=== PATIENT | male | born 1955 | race Caucasian/White ===

== ENCOUNTER → 2017-08-24 08:54 | Outpatient (CLI) | payer OTHER, MEDICAID, SELFPAY ==
--- NOTE | 2017-08-28 15:58 | PM.PFT.1 ---
Pulmonary Function Test Referral & Results Date Patient Seen: 08/24/17 Requesting provider: Fernanda Perry Results: The spirometry demonstrates an FVC of 3.62 L which is 70% of predicted. The FEV1 was measured at 2.08 L which is 53% of predicted. The FEV1/FVC ratio was 57 which is 75% of predicted. Following the administration of bronchodilator there was a 22% improvement in FEV1 and a 60% improvement in FEF 25-75%. Lung volumes show an SVC of 4.36 L which is 86% of predicted. The diffusing capacity was measured at 32.16 which is 91% of predicted. The maximum voluntary ventilation was normal. Interpretation: This study demonstrates moderate obstructive lung disease with evidence of significant benefit following bronchodilator administration
== END ==
PROVIDERS: Family Provider Family Medicine; PCP Family Medicine; Visit Provider Internal Medicine
DX: R05 Cough (principal)
CPT/HCPCS: 94010; 94060; 94726; 94729

== ENCOUNTER → 2017-12-22 08:07 | Outpatient (CLI) | payer OTHER, MEDICAID, SELFPAY ==
[2017-12-22 09:40] LABS: Cholesterol 127 mg/dL (140-199); HDL Cholesterol 36 mg/dL (40-60); LDL Cholesterol Calculated 73 mg/dL (<100); Triglycerides 89 mg/dL (35-150)
[2017-12-22 10:10] LABS: Prostate Specific Antigen 0.592 ng/mL (0.10-4.00)
== END ==
PROVIDERS: PCP Family Medicine; Visit Provider Family Medicine
DX: E78.00 Pure hypercholesterolemia, unspecified (principal); E78.2 Mixed hyperlipidemia; I10 Essential (primary) hypertension; Z12.5 Encounter for screening for malignant neoplasm of prostate
CPT/HCPCS: 36415; 80061; 84153

== ENCOUNTER → 2018-04-25 11:38 | Outpatient (CLI) | payer OTHER, MEDICAID, SELFPAY | PROVIDERS: Family Provider Family Medicine; PCP Family Medicine; Visit Provider Physician Assistant | DX: J02.9 Acute pharyngitis, unspecified (principal) | CPT/HCPCS: 87070 ==

== ENCOUNTER → 2018-05-08 10:19 | Outpatient (CLI) | payer OTHER, MEDICAID, SELFPAY ==
--- NOTE | 2018-05-08 10:22 | DI.RAD.S_ITS ---
PROCEDURE: XR KNEE RT 3V INDICATIONS: pain TECHNIQUE: 3 views of the knee were acquired. COMPARISON: None. FINDINGS: Bones: No fractures or dislocations. No suspicious bony lesions. There is moderately severe medial compartment degenerative knee joint osteophytic change Soft tissues: No joint effusion. No suspicious soft tissue calcifications. IMPRESSION: Moderately severe medial compartment degenerative knee joint osteoarthritis. Dictated by: Enrico Alatorre M.D. on 05/08/2018 at 12:58 Approved by: Enrico Alatorre M.D. on 05/08/2018 at 12:58
--- NOTE | 2018-05-08 10:22 | DI.RAD.S_ITS ---
PROCEDURE: XR KNEE LT 3V INDICATIONS: pain TECHNIQUE: 3 views of the knee were acquired. COMPARISON: None. FINDINGS: Bones: No fractures or dislocations. No suspicious bony lesions. Mild/moderate arthritic joint space narrowing of the medial compartment. Soft tissues: No joint effusion. No suspicious soft tissue calcifications. IMPRESSION: Mild to moderate osteoarthritic change medial compartment of the left knee. Dictated by: Enrico Alatorre M.D. on 05/08/2018 at 12:57 Approved by: Enrico Alatorre M.D. on 05/08/2018 at 12:58
[2018-05-08 11:29] LABS: Add Manual Diff / Slide Review NO; Basophils Absolute Auto 100 /uL (0-100); Basophils Percent Auto 1.2 % (0-2); Eosinophils Absolute Auto 200 /uL (0-450); Eosinophils Percent Auto 3.8 % (2-4); Hematocrit 41.1 % (41-53); Hemoglobin 13.9 g/dL (13.5-17.5); Lymphocytes Absolute Auto 1400 /uL (1100-4500); Lymphocytes Percent Auto 23.6 % (25-40); Mean Corpuscular HGB Conc 33.8 % (30-36); Mean Corpuscular Hemoglobin 30.4 PG (26-34); Mean Corpuscular Volume 90.1 fL (80-100); Monocytes Absolute Auto 700 /uL (0-900); Monocytes Percent Auto 11.8 % (3-14); Neutrophils Absolute Auto 3600 /uL (1500-7000); Neutrophils Percent Auto 59.6 % (50-75); Platelet Count 311 X10^3/uL (150-400); Red Blood Cell Count 4.56 X10^6/uL (4.5-5.9); Red Cell Distribution Width 13.2 % (11.6-14.8); White Blood Cell Count 6.1 X10^3/uL (4.5-11.0)
[2018-05-08 11:39] LABS: Alanine Aminotransferase 30 IU/L (21-72); Albumin 4.4 g/dL (3.5-5.0); Albumin Globulin Ratio 1.2 (1.0-2.8); Alkaline Phosphatase 65 U/L (38-126); Aspartate Aminotransferase 27 IU/L (17-59); BUN Creatinine Ratio 15.6 (6-22); Bilirubin Total 0.6 mg/dL (0.2-1.3); Blood Urea Nitrogen 14 mg/dL (9-20); Calcium 8.9 mg/dL (8.4-10.2); Carbon Dioxide 24 mmol/L (22-32); Chloride 106 mmol/L (98-107); Cholesterol 145 mg/dL (140-199); Estimated Glomerular Filt Rate > 60.0 mL/min (>60); Globulin 3.6 g/dL (1.7-4.1); Glucose 88 mg/dL (80-110); HDL Cholesterol 34 mg/dL (40-60); HEMOLYSIS < 15 (0-50); LDL Cholesterol Calculated 93 mg/dL (<100); Potassium 4.3 mmol/L (3.4-5.1); Sodium 139 mmol/L (137-145); Triglycerides 88 mg/dL (35-150)
[2018-05-08 12:00] LABS: Thyroid Stimulating Hormone 2.36 uIU/mL (0.47-4.68)
== END ==
PROVIDERS: Family Provider Family Medicine; PCP Family Medicine; Visit Provider Family Medicine
DX: M47.812 Spondylosis without myelopathy or radiculopathy, cervical region (principal); I10 Essential (primary) hypertension
CPT/HCPCS: 36415; 73562; 80053; 80061; 84443; 85025

== ENCOUNTER → 2018-06-19 10:12 | Outpatient (CLI) | payer OTHER, MEDICAID, SELFPAY ==
--- NOTE | 2018-06-19 10:14 | DI.RAD.S_ITS ---
PROCEDURE: XR CERVICAL SPINE 2V OR 3V INDICATIONS: djd TECHNIQUE: 3 view(s) of the cervical spine were acquired. COMPARISON: None. FINDINGS: Bones: No fracture or focal osseous destruction. Straightening of the normal cervical lordosis. Diffuse endplate spurring and sclerosis. Moderate to severe disc space narrowing from C4-C7. Diffuse facet arthropathy. Soft tissues: No prevertebral soft tissue swelling. IMPRESSION: Severe multilevel mid and lower cervical spondylosis and diffuse facet arthropathy. Dictated by: Rony Purcell M.D. on 06/19/2018 at 12:45 Approved by: Rony Purcell M.D. on 06/19/2018 at 12:48
--- NOTE | 2018-06-19 10:14 | DI.RAD.S_ITS ---
PROCEDURE: XR ANKLE RT MIN 3V INDICATIONS: djd TECHNIQUE: 3 views of the ankle were acquired. COMPARISON: None. FINDINGS: Bones: No fractures or dislocations. Ankle mortise is normally aligned. No suspicious bony lesions. Moderate tibiotalar and hindfoot joint degeneration. Chronic ossicles projecting adjacent to medial malleolus Soft tissues: No tibiotalar joint effusion. Achilles tendon appears normal. IMPRESSION: Moderate tibiotalar joint degeneration Dictated by: Rony Purcell M.D. on 06/19/2018 at 12:20 Approved by: Rony Purcell M.D. on 06/19/2018 at 12:21
--- NOTE | 2018-06-19 10:14 | DI.RAD.S_ITS ---
PROCEDURE: XR ANKLE LT MIN 3V INDICATIONS: djd TECHNIQUE: 3 views of the ankle were acquired. COMPARISON: [facility], CR, XR ANKLE RT MIN 3V, 06/19/2018, 10:14. FINDINGS: Bones: No fractures or dislocations. Ankle mortise is normally aligned. No suspicious bony lesions. Tibiotalar joint degeneration. Soft tissues: No tibiotalar joint effusion. Achilles tendon appears normal. IMPRESSION: [id number] joint degeneration. Dictated by: Rony Purcell M.D. on 06/19/2018 at 12:15 Approved by: Rony Purcell M.D. on 06/19/2018 at 12:20
--- NOTE | 2018-06-19 10:14 | DI.RAD.S_ITS ---
PROCEDURE: XR HIP W PEL IF DONE RT 2V INDICATIONS: djd TECHNIQUE: AP pelvis with lateral view(s) of the right hip(s). COMPARISON: None. FINDINGS: Bones: No fractures or dislocations. Pelvic ring appears intact. No suspicious bony lesions. Lower lumbar spondylosis. Moderate bilateral hip joint degeneration. Soft tissues: The visualized bowel gas pattern is normal. No suspicious soft tissue calcifications. IMPRESSION: Moderate bilateral hip joint degeneration Dictated by: Rony Purcell M.D. on 06/19/2018 at 12:48 Approved by: Rony Purcell M.D. on 06/19/2018 at 12:52
== END ==
PROVIDERS: Family Provider Family Medicine; PCP Family Medicine; Visit Provider Family Medicine
DX: M19.072 Primary osteoarthritis, left ankle and foot (principal); M19.071 Primary osteoarthritis, right ankle and foot; M47.812 Spondylosis without myelopathy or radiculopathy, cervical region; M16.0 Bilateral primary osteoarthritis of hip
CPT/HCPCS: 72040; 73502; 73610

== ENCOUNTER 2018-09-26 16:00 | Outpatient (RCR) | payer OTHER, MEDICAID, SELFPAY ==
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
== END 2018-09-27 12:27 ==
LOC: PHYS 16:00
PROVIDERS: PCP Family Medicine; Visit Provider Family Medicine
DX: M19.90 Unspecified osteoarthritis, unspecified site (principal); M54.2 Cervicalgia; M54.5 Low back pain
CPT/HCPCS: 97012; 97110; 97140; 97163

== ENCOUNTER → 2018-10-10 16:10 | Outpatient (CLI) | payer OTHER, MEDICAID, SELFPAY ==
[2018-10-10 17:56] LABS: Ferritin 26.1 ng/mL (17.9-464)
== END ==
PROVIDERS: PCP Family Medicine; Visit Provider Nurse Practitioner Family
DX: G47.61 Periodic limb movement disorder (principal)
CPT/HCPCS: 36415; 82728

== ENCOUNTER → 2019-05-11 14:38 | Outpatient (CLI) | payer OTHER, MEDICAID, SELFPAY ==
--- NOTE | 2019-05-11 | DI.MRI.S_ITS ---
PROCEDURE: MR CERVICAL SPINE WO CON INDICATIONS: NECK PAIN TECHNIQUE: Noncontrast sagittal T1 spin echo and T2 fast spin echo, sagittal STIR, foraminal oblique sagittal T2 fast spin echo, and axial gradient echo or T2 fast spin echo through the cervical spine. COMPARISON: None. FINDINGS: Image quality: Excellent. Alignment and Curvature: Straightening of the normal lordotic curvature. Bone Marrow: No fracture. Multilevel degenerative endplate sclerosis and spurring. Diffuse facet arthropathy. Spinal Cord: Visualized spinal cord has normal size and signal. No cerebellar tonsillar herniation. Paraspinous Soft Tissues: No paravertebral masses. Prevertebral soft tissues are normal in thickness. C2-C3: Mild left-sided central canal narrowing. Moderate left foraminal stenosis without nerve root compression. Minimal right foraminal narrowing. C3-C4: Mild central canal narrowing. Mild right foraminal stenosis. Moderate left foraminal stenosis with nerve root compression. C4-C5: Mild central canal narrowing. Severe bilateral foraminal stenosis with nerve root compression. C5-C6: Mild central canal narrowing. Severe right foraminal stenosis with nerve root compression. Moderate left foraminal stenosis with nerve root compression C6-C7: Minimal central canal narrowing. Severe right foraminal stenosis with nerve root compression. Moderate left foraminal stenosis with nerve root compression C7-T1: No high-grade central canal narrowing. No foraminal stenosis IMPRESSION: Severe bilateral foraminal stenoses most notably at C4-C5, C5-C6, and C6-C7 as detailed above by spinal level Dictated by: Rony Purcell M.D. on 05/13/2019 at 11:45 Approved by: Rony Purcell M.D. on 05/13/2019 at 11:57
== END ==
PROVIDERS: PCP Student in an Organized Health Care Education/Training Program; Visit Provider Student in an Organized Health Care Education/Training Program
DX: M54.2 Cervicalgia (principal); M48.02 Spinal stenosis, cervical region
CPT/HCPCS: 72141

== ENCOUNTER → 2020-05-28 16:30 | Outpatient (CLI) | payer OTHER, MEDICAID, SELFPAY ==
--- NOTE | 2020-05-28 | DI.RAD.S_ITS ---
PROCEDURE: XR KNEE LT 3V INDICATIONS: LEFT KNEE PAIN AND WEAKNESS TECHNIQUE: 3 views of the knee were acquired. COMPARISON: [facility], , XR KNEE LT 3V, 05/08/2018, 10:24. FINDINGS: Bones: No fractures or dislocations. No suspicious bony lesions. Mild osteoarthritic changes at the medial femorotibial compartment and patellofemoral compartment. Soft tissues: No joint effusion. No suspicious soft tissue calcifications. IMPRESSION: Mild osteoarthritis. Dictated by: Juan C Desai M.D. on 05/28/2020 at 17:08 Approved by: Juan C Desai M.D. on 05/28/2020 at 17:10
== END ==
PROVIDERS: PCP Student in an Organized Health Care Education/Training Program; Referring Provider Student in an Organized Health Care Education/Training Program; Visit Provider Student in an Organized Health Care Education/Training Program
DX: M25.562 Pain in left knee (principal); M17.12 Unilateral primary osteoarthritis, left knee
CPT/HCPCS: 73562

== ENCOUNTER → 2020-11-16 13:15 | Outpatient (CLI) | payer OTHER, MEDICAID, SELFPAY ==
--- NOTE | 2020-11-16 | DI.MRI.S_ITS ---
PROCEDURE: MR KNEE LT WO CON INDICATIONS: Pain in left knee TECHNIQUE: Noncontrast sagittal PD fast spin echo and T2 fast spin echo with fat saturation, sagittal 3-D FLASH with fat saturation; coronal T1 spin echo and PD fast spin echo with fat saturation, and axial PD fast spin echo with fat saturation through the knee. COMPARISON: None. FINDINGS: Image quality: Excellent. Menisci: There is peripheral displacement of medial meniscus bowing medial collateral ligament. Complex tear involving body and posterior horn of medial meniscus is seen extending to both superior and inferior articulating surfaces. There is no evidence of focal lateral meniscal tear. The meniscal root ligaments appear intact. Cruciate ligaments: The anterior and posterior cruciate ligaments appear intact. Medial structures: Low-grade MCL sprain is seen.. The posterior oblique ligament, semimembranosus tendon insertions, oblique popliteal ligament, and meniscocapsular junction appear intact. Visualized portions of the pes anserinus tendons appear normal. No abnormal bursal fluid. Lateral structures: The lateral collateral ligament, long and short heads of the biceps femoris tendon appear intact. The popliteus tendon appears normal; the popliteofibular ligament appears intact. The posterosuperior and anteroinferior popliteomeniscal fascicles appear intact. The arcuate and fabellofibular ligaments appear intact, on either side of the lateral inferior geniculate artery. Iliotibial band appears normal. Anterior structures: The quadriceps and patellar tendons appear intact. Patellar alignment is normal. No femoral trochlear dysplasia or ventral trochlear prominence. No edema in the infrapatellar fat pad. Bones and cartilage: [id number] tricompartmental osteoarthritis and chondromalacia is seen most prominent involving medial femoral tibial compartment with suggestion of small osteochondral lesions involving weight-bearing portion of medial femoral condyle measures up to 3 mm in size with surrounding edema. Mild bony contusion and small osteochondral lesions are also noted in anterior weight-bearing portion of medial tibial plateau measures up to 2 mm in size. Joint space: There is small to moderate amount of joint fluid, no gross intra-articular loose body. There is a small popliteal cyst. Normal appearing synovial plicae are incidentally noted. IMPRESSION: 1. 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 No fracture or dislocation. 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 2. Small to moderate amount of joint fluid, no gross loose body. Small popliteal cyst. 3. Complex tear involving body and posterior horn of medial meniscus extending to both superior and inferior articulating surfaces. No focal lateral meniscal tear. 4. Low-grade MCL sprain. Anterior and posterior cruciate ligaments are intact. Dictated by: Casper Oscar M.D. on 11/16/2020 at 14:45 Approved by: Casper Oscar M.D. on 11/16/2020 at 14:48
== END ==
PROVIDERS: PCP Student in an Organized Health Care Education/Training Program; Referring Provider Student in an Organized Health Care Education/Training Program; Visit Provider Student in an Organized Health Care Education/Training Program
DX: M25.562 Pain in left knee (principal); S83.232A Complex tear of medial meniscus, current injury, left knee, initial encounter; S83.412A Sprain of medial collateral ligament of left knee, initial encounter; M71.22 Synovial cyst of popliteal space [Baker], left knee; M17.12 Unilateral primary osteoarthritis, left knee; M22.42 Chondromalacia patellae, left knee
CPT/HCPCS: 73721